=== PATIENT | male | born 1970 | race Hispanic/Latino ===

== ENCOUNTER 2018-05-13 09:56 | Emergency (ER) | payer OTHER ==
[2018-05-13 10:22] LABS: BASOPHILS % (AUTO) 1.3 % (0.0-5.0); EOSINOPHILS % (AUTO) 1.5 % (0.0-8.0); HEMATOCRIT 29.9 % (42-54); MEAN CORPUSCULAR HEMOGLOBIN 35.2 pg (27.0-33.0); MEAN CORPUSCULAR HGB CONC 34.8 g/dL (32.0-36.0); MONOCYTES % (AUTO) 9.2 % (3.0-13.0); PLATELET COUNT (AUTO) 73 K/uL (130-400); RED BLOOD CELL COUNT(AUTO) 2.96 MIL/uL (4.50-6.20); RED CELL DISTRIBUTION WIDTH 14.4 % (11.0-15.5)
[2018-05-13] MEDS ORDERED: MAG HYDROX/AL HYDROX/SIMETH ES 30 ML SUSP UDCUP ONE (10:27)
[2018-05-13] MEDS ORDERED: FUROSEMIDE 10 MG/ML 4ML VIAL ONE (10:27)
[2018-05-13] MEDS ORDERED: LIDOCAINE HCL 2% VISCOUS 15 ML UDCUP ONE (10:27)
[2018-05-13] MEDS ORDERED: FAMOTIDINE/PF 20 MG/2 ML VIAL IV ONE (10:28)
[2018-05-13 10:31] LABS: LIPASE 178 U/L (114-286)
[2018-05-13 10:33] LABS: CREATININE 0.9 mg/dL (0.5-1.5); POTASSIUM 4.3 mmol/L (3.5-5.1)
[2018-05-13 10:37] LABS: ALBUMIN 1.3 g/dL (3.5-5.0); BILIRUBIN,TOTAL 1.6 mg/dL (0.2-1.0); TOTAL PROTEIN, SERUM 8.3 g/dL (6.0-8.3)
[2018-05-13 10:40] LABS: AMMONIA 76 umol/L (11-32)
[2018-05-13 10:44] LABS: INR 1.18 (0.85-1.15); PARTIAL THROMBOPLASTIN TIME 39.4 SEC (26.3-35.5); PROTHROMBIN TIME 12.3 SEC (9.6-11.6)
[2018-05-13] MEDS ORDERED: LACTULOSE 20 GM/30 ML UDCUP ONE (11:00)
== END 2018-05-13 12:37 | disposition home or self-care (01) ==
LOC: EDH 09:56
DX: K74.60 Unspecified cirrhosis of liver (principal); R18.8 Other ascites; E72.20 Disorder of urea cycle metabolism, unspecified; R07.2 Precordial pain; I10 Essential (primary) hypertension; E11.9 Type 2 diabetes mellitus without complications; E78.5 Hyperlipidemia, unspecified
CPT/HCPCS: 36415; 71045; 80053; 82140; 82550; 83690; 84484; 85025; 85610; 85730; 93005; 96374; 99284; J1940; J3490